=== PATIENT | female | born 1995 | race American Indian/Alaskan Native ===

== ENCOUNTER 2021-02-01 02:22 | Emergency (ER) | payer SELFPAY ==
[2021-02-01 02:37] VITALS: BP 120/64
[2021-02-01] MEDS: ONDANSETRON 4 MG/2 ML INJ IM ONE ×2 (02:51→03:46)
[2021-02-01] MEDS ORDERED: PROCHLORPERAZINE EDISYLATE 10 MG/2 ML VIAL IV ONE (02:55)
[2021-02-01] MEDS ORDERED: FAMOTIDINE 20 MG/2 ML INJ IV ONE (02:55)
[2021-02-01] MEDS ORDERED: SODIUM CHLORIDE 0.9% 1000 ML 1,000 ML IV ONE (02:55)
[2021-02-01] MEDS ORDERED: MORPHINE 10 MG/1 ML INJ IV ONE (02:55)
[2021-02-01 03:30] LABS: Basophils % (Auto) 0.3 % (0.0-1.8); Hematocrit 35.9 % (30.3-42.9); Hemoglobin 12.1 gm/dl (10.1-14.3); Lymphocytes # (Auto) 0.9 K/mm3 (1.2-5.4); Lymphocytes % (Auto) 8.7 % (13.4-35.0); Mean Corpuscular HGB Conc 34 % (30-34); Mean Corpuscular Volume 95 fl (79-97); Monocytes # (Auto) 0.2 K/mm3 (0.0-0.8); Monocytes % (Auto) 2.4 % (0.0-7.3); Platelet Count 258 K/mm3 (140-440); Red Blood Count 3.79 M/mm3 (3.65-5.03); Red Cell Distribution Width 12.9 % (13.2-15.2)
[2021-02-01 03:51] LABS: Alanine Aminotransferase 14 units/L (7-56); Blood Urea Nitrogen 10 mg/dL (7-17); Hemolysis Index 2
[2021-02-01 03:52] LABS: BUN/Creatinine Ratio 14
[2021-02-01 06:22] LABS: Bacteria,Urine 1+ /HPF (Negative); Bilirubin,Urine NEG (Negative); Blood,Urine NEG (Negative); Color,Urine Yellow (Yellow); Mucus,Urine 3+ /HPF; Urobilinogen,Urine < 2.0 mg/dL (<2.0)
--- NOTE | 2021-02-01 06:25 | Emergency Department Report ---
ED N/V/D HPI - General Chief complaint: Abdominal Pain Stated complaint: ABD PAIN/EMESIS Source: patient Mode of arrival: Ambulatory Limitations: No Limitations - History of Present Illness Initial comments: Patient is a nulliparous 25-year-old female who presents to the ED with complaint of acute onset persistent intractable nausea and vomiting with mild epigastric pain for the last 8 hours. Patient states that she is currently on her menstrual cycle and that she routinely experience similar nausea and vomiting episodes with her menstrual cycle due to dysmenorrhea. Patient states that the current symptoms are similar to what she has previously experienced in the past. Patient states that she has not been able to keep anything down especially in the last 6 hours. Patient denies dizziness, syncope, headache, chest pain, shortness of breath, dysuria, urinary frequency and urgency, low back pain, change in vision or vaginal discharge and low back pain. MD complaint: nausea, vomiting, abdominal pain (Epigastric pain) -: Sudden, hour(s) (8) Description of Vomiting: food contents, watery, bilious Associated Abdominal Pain: Yes (Mild epigastric) Location: epigastric Radiation: none Severity: severe Pain Scale: 4 Quality: cramping, aching Consistency: intermittent Improves with: none Worsens with: eating, vomiting Context: possible food poisoning, other (Dysmenorrhea) Associated Symptoms: denies other symptoms, myalgias, loss of appetite, malaise, nausea/vomiting. denies: chest pain, cough, diaphoresis, fever/chills, headaches, rash, dysuria, shortness of breath, syncope, other - Related Data Allergies Allergy/AdvReac Type Severity Reaction Status Date / Time No Known Allergies Allergy Verified 02/01/21 02:58 ED Review of Systems ROS: Stated complaint: ABD PAIN/EMESIS Other details as noted in HPI Constitutional: denies: chills, fever Eyes: denies: eye pain, eye discharge, vision change ENT: denies: ear pain, throat pain Respiratory: denies: cough, shortness of breath, wheezing Cardiovascular: denies: chest pain, palpitations Endocrine: no symptoms reported Gastrointestinal: abdominal pain, nausea, vomiting. denies: diarrhea Genitourinary: denies: urgency, dysuria, discharge Musculoskeletal: denies: back pain, joint swelling, arthralgia Skin: denies: rash, lesions Neurological: denies: headache, weakness, paresthesias Psychiatric: denies: anxiety, depression Hematological/Lymphatic: denies: easy bleeding, easy bruising ED Past Medical Hx - Past Medical History Previous Medical History?: No - Surgical History Past Surgical History?: No ED Physical Exam - General Limitations: No Limitations General appearance: alert, in no apparent distress - Head Head exam: Present: atraumatic, normocephalic, normal inspection - Eye Eye exam: Present: normal appearance, PERRL, EOMI Pupils: Present: normal accommodation - ENT ENT exam: Present: normal exam, normal orophraynx, mucous membranes moist, TM's normal bilaterally, normal external ear exam - Neck Neck exam: Present: normal inspection, full ROM - Respiratory Respiratory exam: Present: normal lung sounds bilaterally. Absent: respiratory distress, wheezes, rales, rhonchi, chest wall tenderness, accessory muscle use, decreased breath sounds - Cardiovascular Cardiovascular Exam: Present: regular rate, normal rhythm, bradycardia, normal heart sounds. Absent: systolic murmur, diastolic murmur, rubs, gallop - GI/Abdominal GI/Abdominal exam: Present: soft, normal bowel sounds. Absent: tenderness, guarding, rebound, hyperactive bowel sounds, hypoactive bowel sounds, organomegaly, mass - Extremities Exam Extremities exam: Present: normal inspection, full ROM, normal capillary refill - Back Exam Back exam: Present: normal inspection, full ROM. Absent: tenderness, CVA tenderness (R), CVA tenderness (L), muscle spasm, paraspinal tenderness - Neurological Exam Neurological exam: Present: alert, oriented X3, CN II-XII intact, normal gait, reflexes normal - Psychiatric Psychiatric exam: Present: normal affect, normal mood, anxious - Skin Skin exam: Present: warm, dry, intact, normal color. Absent: rash ED Course Vital Signs 02/01/21 02/01/21 02:36 03:47 Temperature 99.2 F Pulse Rate 52 L Respiratory 18 20 Rate Blood Pressure 120/64 O2 Sat by Pulse 100 Oximetry ED Medical Decision Making - Lab Data Result diagrams: 02/01/21 03:08 02/01/21 03:08 - Medical Decision Making This is a nulliparous 25-year-old female who presents to the ED with complaint of acute onset persistent intractable nausea and vomiting with mild epigastric pain for the last 8 hours. Patient states that she is currently on her menstrual cycle and that she routinely experience similar nausea and vomiting episodes with her menstrual cycle due to dysmenorrhea. Patient states that the current symptoms are similar to what she has previously experienced in the past. Patient states that she has not been able to keep anything down especially in the last 6 hours. In the ED, patient is alert and oriented x3 and is not in any distress. Patient was treated in the ED with antiemetics, also received antacids, and normal saline 1 L IV bolus x1. On reevaluation, patient's nausea and vomiting resolved, patient passed oral fluid challenge in the ED. Patient however eloped from the ED and sign out AMA prior to being discharged from the ED. - Differential Diagnosis Gastroenteritis; GERD; dehydration; UTI; ; Critical care attestation.: If time is entered above; I have spent that time in minutes in the direct care of this critically ill patient, excluding procedure time. ED Disposition Clinical Impression: Viral gastroenteritis, Severe dysmenorrhea, Intractable nausea and vomiting Disposition: 07 LEFT AGAINST MEDICAL ADVICE Is pt being admited?: No Does the pt Need Aspirin: No Condition: Undetermined Instructions: Abdominal Pain (ED), Viral Gastroenteritis, Adult, [id number], Nausea, Adult, [id number] Forms: AMA Form Time of Disposition: 05:53 Print Language: MACEDONIAN
== END 2021-02-01 06:00 | disposition left against medical advice (07) ==
LOC: ED 02:22
DX: A08.4 Viral intestinal infection, unspecified (principal); N94.6 Dysmenorrhea, unspecified
CPT/HCPCS: 36415; 80053; 81001; 84703; 85025; 87086; 96361; 96372; 96374; 96375; 99283; J0780; J2270; J2405; J7030

== ENCOUNTER 2021-02-12 16:57 | Emergency (ER) | payer SELFPAY ==
[2021-02-12 17:12] VITALS: BP 97/60
--- NOTE | 2021-02-12 18:35 | Emergency Department Report ---
Chief Complaint: Nausea/Vomiting/Diarrhea Stated Complaint: POSS COVID+,WANTS TO BEEN SEEN FOR SYMPTOMS Time Seen by Provider: 02/12/21 18:28 - HPI History of Present Illness: The patient was evaluated in the emergency department for symptoms described in the history of present illness. He/she was evaluated in the context of the global COVID-19 pandemic, which necessitated consideration that the patient might be at risk for infection with the virus that causes COVID-19. Institutional protocols and algorithms that pertain to the evaluation of patients at risk for COVID-19 are in a state of rapid change based on information released by regulatory bodies including the CDC and federal and state organizations. These policies and algorithms were followed during the patient's care in the emergency department. Please note that these policies, procedures and recommendations changed on a rapid basis. 25-year-old female presents to the emergency room for cold-like symptoms for the last 3 to 4 days. Patient is unvaccinated and has not been tested. She has not taken any [id number] medications. States that she does not like to take pills. Patient denies any fever or chills. She states that she has been having some diarrhea. - Exam Vital Signs: Vital Signs 02/12/21 02/12/21 17:09 18:16 Temperature 98.8 F Pulse Rate 86 Respiratory 15 18 Rate Blood Pressure 97/60 [Right] O2 Sat by Pulse 97 97 Oximetry Physical Exam: General: Awake, appropriately interactive, no acute distress. Neck: Supple. Full range of motion intact. Cardiovascular: Normal peripheral perfusion. Pulmonary: No respiratory distress. Patient is speaking normally without use of accessory muscles. Skin: No apparent rashes or lesions. Neurological: No facial asymmetry. Speech is clear. Follows commands. Patient is alert and oriented. Musculoskeletal: Full range of motion, no crepitus. Able to bear weight and ambulate without difficulty. Distal neurovascular and motor/sensory function is intact. Psych: Cooperative. Appropriate mood and affect. MSE screening note: Focused history and physical exam performed. Due to findings the following was ordered: 25-year-old female presents to the emergency room for cold-like symptoms for the last 3 to 4 days. Patient is unvaccinated and has not been tested. She has not taken any [id number] medications. States that she does not like to take pills. Patient denies any fever or chills. She states that she has been having some diarrhea. ED Medical Decision Making - Medical Decision Making 25-year-old female presents to the emergency room for cold-like symptoms for the last 3 to 4 days. Patient is unvaccinated and has not been tested. She has not taken any [id number]-uwi-agkqfov medications. States that she does not like to take pills. Patient denies any fever or chills. She states that she has been having some diarrhea. Recommend taking [id number] Imodium for diarrhea cough and cold Tylenol NyQuil or DayQuil. Go get Covid tested consider getting Covid vaccination. ED Disposition for MSE Clinical Impression: Suspected COVID-19 virus infection Disposition: HOME / SELF CARE / HOMELESS Is pt being admited?: No Does the pt Need Aspirin: No Condition: Stable Instructions: COVID-19: How to Protect Yourself and Others - CDC, Prevent the Spread of COVID-19 if You Are Sick - CDC, COVID-19 Frequently Asked Questions Additional Instructions: Your symptoms appear most consistent with a nonspecific viral syndrome. Ho wevaishali, given this current pandemic, COVID-19 is in the differential of possibilities. Despite your previous negative COVID-19 test, I do recommend repeat outpatient Covid 19 testing. In the meantime, isolate/quarantine yourself and stay away from anyone who is elderly, immunocompromised or chronically ill. You can use ibuprofen every 6-8 hours and Tylenol every 4-8 hours, using the dosing on the back of the bottle, as needed for any fever or body aches. Return to the emergency department with any worsening of your symptoms, development of chest pain or shortness of breath, or with any acute distress. Referrals: PRIMARY CAREMD [Primary Care Provider] - 3-5 Days Time of Disposition: 18:31
== END 2021-02-12 18:44 | disposition home or self-care (01) ==
LOC: ED 16:57
DX: R19.7 Diarrhea, unspecified (principal); R05.9 Cough, unspecified; Z20.822 Contact with and (suspected) exposure to COVID-19
CPT/HCPCS: 99281